=== PATIENT | male | born 1990 | race Two or more races ===

== ENCOUNTER 2023-05-15 19:58 | Emergency (ER) | payer SELFPAY ==
[~2023-05-15] VITALS: Ht 165.1 cm; Wt 61.4 kg
[2023-05-15 20:11] VITALS: BP 140/103; PULSE 103; RESP 16; TEMP 98.5
[2023-05-15] MEDS ORDERED: LIDOCAINE 1% 10 ML VIAL PERC ONE (21:15)
[2023-05-15] MEDS ORDERED: PERTUSS(ACELL),DIPH,TET VAC/PF 0.5 ML SYRINGE IM. ONE (21:15)
[2023-05-15] MEDS ORDERED: AMOX1TAB16 PO (22:25)
[2023-05-15] MEDS ORDERED: IBUP-1492 PO (22:25)
== END 2023-05-15 23:09 | disposition home or self-care (01) ==
LOC: EMS 20:36
DX: S01.511A Laceration without foreign body of lip, initial encounter (principal); F10.90 Alcohol use, unspecified, uncomplicated; W26.8XXA Contact with other sharp object(s), not elsewhere classified, initial encounter; Y93.89 Activity, other specified; Y92.89 Other specified places as the place of occurrence of the external cause; Y99.8 Other external cause status
CPT/HCPCS: 99284; 12051; 90715; 90471; J3490